=== PATIENT | male | born 1965 | race Caucasian/White ===

== ENCOUNTER → 2019-06-04 | Outpatient (CLI) | payer OTHER ==
--- NOTE | 2019-06-04 11:08 | XR ---
EXAMINATION TYPE: XR chest 2V DATE OF EXAM: 06/04/2019 COMPARISON: NONE HISTORY: History of asthma. TECHNIQUE: Frontal and lateral views of the chest are obtained. FINDINGS: There is no focal air space opacity, pleural effusion, or pneumothorax seen. The cardiac silhouette size is within normal limits. The osseous structures are intact. IMPRESSION: No acute cardiopulmonary process.
== END | disposition home or self-care (01) ==
LOC: RADXRMAIN 10:42
PROVIDERS: ATTEND Family Medicine
DX: J45.40 Moderate persistent asthma, uncomplicated (principal)
CPT/HCPCS: 71046

== ENCOUNTER → 2021-04-12 | Outpatient (CLI) | payer OTHER | END | disposition home or self-care (01) | LOC: LABWHC1 10:47 | PROVIDERS: ATTEND Family Medicine | DX: U07.1 COVID-19 (principal) | CPT/HCPCS: U0003; C9803 ==

== ENCOUNTER → 2022-08-22 | Outpatient (CLI) | payer OTHER ==
--- NOTE | 2022-08-23 09:34 | XR ---
EXAMINATION TYPE: XR shoulder complete 3 views RT DATE OF EXAM: 08/22/2022 Comparison: None Clinical History: 57-year-old male M25.511 PAIN IN RIGHT SHOULDER Findings: Mild degenerative change AC joint with mild joint space narrowing. Subacromial space is preserved. No tendinous or bursal calcifications. There is moderate to severe degenerative change of the glenohume ral joint with significant loss of cartilage and joint space especially along the inferior half of th e joint. Inferior humeral head spurring is also present. No acute fracture, subluxation, dislocation seen. Impression: Moderate to severe glenohumeral joint OA. Mild AC joint OA. No acute osseous abnormality seen.
== END | disposition home or self-care (01) ==
LOC: RADXRMAIN 16:37
PROVIDERS: ATTEND Family Medicine
DX: M19.011 Primary osteoarthritis, right shoulder (principal)

== ENCOUNTER → 2023-10-15 | Outpatient (CLI) | payer OTHER ==
--- NOTE | 2023-10-22 12:56 | MR ---
EXAMINATION TYPE: MR knee LT wo con DATE OF EXAM: 10/15/2023 COMPARISON: No radiographic correlation available HISTORY: 58-year-old male M2 5.562, M2 3.304, Left knee pain and swelling x3 months TECHNIQUE: Multiplanar, multisequence imaging of the left knee is performed without IV contrast. FINDINGS: ACL and PCL are intact. Edema on either side of the otherwise intact MCL. Mild increased signal at the femoral attachment of the LCL proper. LCL complex otherwise appears inta ct. There is a large tear extending throughout the medial meniscus with a bucket-handle fragment flipped into the intercondylar notch and anteriorly. Mild to moderate irregular cartilage loss along the mid weightbearing aspect of the medial compartment. Lateral meniscus is intact. There is a focal 7 x 9 mm area of moderate irregular cartilage loss along the mid to posterior weightbearing aspect of the lateral femoral condyle articular surface. Moderate irregular cartilage loss throughout the patellofemoral compartment especially along the back side of the patella. Some reactive subchondral signal change along the medial facet of the patella. Moderate to large knee joint effusion without Minaya's cyst. Scattered nonspecific subcutaneous soft t issue swelling. Mild muscle edema along the lateral head gastrocnemius. Extensor mechanism is intact. Normal popliteal artery anatomy and muscle bulk. No suspicious bone marrow replacement. IMPRESSION: 1. Large tear extending throughout the medial meniscus with a bucket-handle fragment flipped anterior ly and into the intercondylar notch. 2. Mild tricompartmental osteoarthrosis, more moderate along the patellar articular surface. 3. Grade 1 MCL sprain. Grade 1 sprain LCL proper. 4. Moderate to large knee joint effusion likely reactive. 5. Mild muscle strain of the lateral head gastrocnemius.
== END | disposition home or self-care (01) ==
LOC: RADMRIMAIN 19:45
PROVIDERS: ATTEND Orthopaedic Surgery Sports Medicine
DX: M23.304 Other meniscus derangements, unspecified medial meniscus, left knee (principal); S83.242A Other tear of medial meniscus, current injury, left knee, initial encounter; M17.12 Unilateral primary osteoarthritis, left knee; M25.462 Effusion, left knee